=== PATIENT | female | born 1960 | race Caucasian/White ===

== ENCOUNTER 2017-11-27 18:34 | Emergency (ER) | payer MEDICAID ==
[~2017-11-27] VITALS: Ht 154.9 cm; Wt 61.2 kg
[2017-11-27 18:40] VITALS: BP_SYST 136
[2017-11-27] MEDS: IBUPROFEN 800 MG TABLET PO ONE (19:14)
[2017-11-27 19:16] LABS: BILIRUBIN,URINE NEGATIVE (NEGATIVE); CLARITY/URINE SL HAZY (CLEAR); COLOR,URINE YELLOW (YELLOW); GLUCOSE,URINE NEGATIVE (NEGATIVE); KETONES,URINE NEGATIVE (NEGATIVE); LEUKOCYTE ESTERASE ,URINE 2+ (NEGATIVE); NITRITE, URINE NEGATIVE (NEGATIVE); PROTEIN URINE NEGATIVE (NEGATIVE); UROBILINOGEN,URINE 0.2 (0.2-1.0)
[2017-11-27 19:26] LABS: BLOOD, URINE TRACE (NEGATIVE)
[2017-11-27 19:30] LABS: BACTERIA,URINE MANY /HPF (None Seen); MUCUS,URINE None Seen /LPF (None Seen); RBC,URINE 0-3 /HPF (0-3); WBC,URINE 20-50 /HPF (0-3)
[2017-11-27 19:55] VITALS: BP_SYST 130
== END 2017-11-27 19:55 | disposition home or self-care (01) ==
LOC: SED 19:34
DX: N39.0 Urinary tract infection, site not specified (principal); I10 Essential (primary) hypertension; E11.9 Type 2 diabetes mellitus without complications
CPT/HCPCS: 81000-TC; 87086; 87186-TC; 99284